=== PATIENT | male | born 1970 | race Caucasian/White ===

== ENCOUNTER 2020-09-28 08:03 | Emergency (ER) | payer OTHER ==
[~2020-09-28] VITALS: Ht 165.1 cm; Wt 106.6 kg
[2020-09-28] MEDS ORDERED: FLAGYL500MG PO (15:51)
[2020-09-28] MEDS ORDERED: PEPCID20 MG PO (15:51)
[2020-09-28] MEDS ORDERED: INTESTINEX680 M1 PO (15:51)
[2020-09-28] MEDS ORDERED: LEVOFLOXACIN750 MG PO (15:51)
[2020-09-28] MEDS ORDERED: KETO10TA2 PO (15:51)
== END 2020-09-28 17:04 | disposition home or self-care (01) ==
LOC: ER 08:03
DX: R10.32 Left lower quadrant pain (principal); Z20.828 Contact with and (suspected) exposure to other viral communicable diseases

== ENCOUNTER 2020-09-28 21:33 | Inpatient (IN) | payer OTHER ==
[~2020-09-28] VITALS: Ht 165.1 cm; Wt 5.0 kg
[~2020-09-28 21:33] MED LIST: FLAGYL500MG PO; INTESTINEX680 M1 PO; KETO10TA2 PO; LEVOFLOXACIN750 MG PO; PEPCID20 MG PO
[2020-10-03] MEDS ORDERED: AMOX-CLAV 875-1 EACH PO (11:46)
[2020-10-03] MEDS ORDERED: PROBIOTIC1 EAC1 PO (11:51)
[2020-10-03] MEDS ORDERED: PEPCID AC20 MG PO (11:52)
== END 2020-10-03 16:12 | disposition home or self-care (01) | DRG 392 ==
LOC: ER 21:33 → MEDJ 09-29 10:54
PROVIDERS: ADMIT Internal Medicine; ATTEND Internal Medicine
PROC: BW24ZZZ Computerized Tomography (CT Scan) of Chest and Abdomen (ICD-10-PCS; principal; 2020-09-29)
DX: K57.32 Diverticulitis of large intestine without perforation or abscess without bleeding (principal); T50.995A Adverse effect of other drugs, medicaments and biological substances, initial encounter; Z20.828 Contact with and (suspected) exposure to other viral communicable diseases

== ENCOUNTER 2021-01-13 09:16 | Day surgery (SDC) | payer OTHER ==
[~2021-01-13 09:16] MED LIST changes: +AMOX-CLAV 875-1 EACH PO; +PEPCID AC20 MG PO; +PROBIOTIC1 EAC1 PO
== END 2021-01-13 16:35 | disposition home or self-care (01) ==
LOC: AMB-ENDOS 09:16
PROVIDERS: ATTEND Surgery
DX: D12.2 Benign neoplasm of ascending colon (principal); Z12.11 Encounter for screening for malignant neoplasm of colon; Z20.822 Contact with and (suspected) exposure to COVID-19

== ENCOUNTER 2021-03-09 08:40 | Emergency (ER) | payer OTHER ==
[~2021-03-09] VITALS: Ht 165.1 cm; Wt 104.3 kg
[2021-03-09] MEDS ORDERED: LOSARTAN-HCTZ1 EACH PO (15:37)
== END 2021-03-09 16:19 | disposition home or self-care (01) ==
LOC: ER 08:40
DX: I16.0 Hypertensive urgency (principal); I10 Essential (primary) hypertension; Z11.52 Encounter for screening for COVID-19

== ENCOUNTER 2022-04-15 17:35 | Emergency (ER) | payer OTHER ==
[~2022-04-15] VITALS: Ht 165.1 cm; Wt 99.8 kg
[~2022-04-15 17:35] MED LIST changes: +LOSARTAN-HCTZ1 EACH PO
== END 2022-04-15 21:29 | disposition home or self-care (01) ==
LOC: ER 17:35
DX: R51.9 Headache, unspecified (principal)

== ENCOUNTER 2023-05-06 23:46 | Emergency (ER) | payer OTHER ==
[~2023-05-06] VITALS: Ht 165.1 cm; Wt 102.1 kg
[2023-05-07] MEDS ORDERED: XANAX XR0.5 MG PO (04:35)
== END 2023-05-07 04:48 | disposition home or self-care (01) ==
LOC: ER 23:46
DX: F41.9 Anxiety disorder, unspecified (principal)

== ENCOUNTER 2023-08-06 11:52 | Inpatient (IN) | payer OTHER ==
[~2023-08-06] VITALS: Ht 165.1 cm; Wt 975.2 kg
[~2023-08-06 11:52] MED LIST changes: +XANAX XR0.5 MG PO
[2023-08-06] MEDS ORDERED: PEPCID AC20 MG (12:47)
[2023-08-06 14:39] LABS: HEMATOCRIT 44.9 % (39.0-48.0); HEMOGLOBIN 15.4 g/dL (13-16.00); MEAN CELL VOLUME 93.8 fL (80.0-100.00); MEAN CORPUSCULAR HEMOGLOBIN 32.2 pg (27.00-32.0); MEAN CORPUSCULAR HGB CONC 34.3 g/dl (32.0-36.0); PLATELET COUNT 265 K/uL (150-450); RED BLOOD COUNT 4.79 M/uL (4.00-6.00); RED CELL DISTRIBUTION WIDTH 13.7 % (11.5-14.5)
[2023-08-06 14:51] LABS: URINE APPEARANCE Cloudy; URINE BILIRRUBIN Small (NEGATIVE); URINE BLOOD Small; URINE COLOR Dark Yellow; URINE GLUCOSE Negative (NEGATIVE); URINE LEUKOCYTE Large; URINE NITRATE Positive; URINE PROTEIN 30 (NEGATIVE)
[2023-08-06 14:55] LABS: URINE RBC 67.5 uL (0.0-20.8)
[2023-08-06 14:59] LABS: URINE EPITHELIAL CELLS 0.6 uL (0.0-38.8)
[2023-08-06 15:17] LABS: ALBUMIN 3.3 gm/dL (3.4-5.0); BILIRUBIN TOTAL 1.86 mg/dL (0.3-1.2); CALCIUM 9.4 mg/dL (8.5-10.1); CREATININE SERUM 0.96 mg/dL (0.70-1.30); GFR 82.25; GLOBULINA 5.2 G/DL (2.4-3.5); POTASSIUM 3.31 mEq/L (3.5-5.1); TOTAL PROTEIN 8.5 gm/dL (6.4-8.2)
[2023-08-06 15:21] LABS: PROSTATIC SPECIFIC ANTIGEN 12.7 NG/ML (0.010-4.00)
[2023-08-07 00:35] LABS: INR 1.18; PARTIAL THROMBOPLASTIN TIME 29.5 SECONDS (22.0-34.0); PROTHROMBIN TIME 12.2 SECONDS (9.0-11.5)
[2023-08-07 16:02] LABS: CALCIUM 8.2 mg/dL (8.5-10.1); CHOL HDL RATIO 2.5 (0-5.0); CREATININE SERUM 0.84 mg/dL (0.70-1.30); GFR 95.95; POTASSIUM 3.42 mEq/L (3.5-5.1)
[2023-08-08 07:28] LABS: ALBUMIN 2.8 gm/dL (3.4-5.0); BILIRUBIN TOTAL 0.94 mg/dL (0.3-1.2); CALCIUM 8.2 mg/dL (8.5-10.1); CREATININE SERUM 0.83 mg/dL (0.70-1.30); GFR 97.29; GLOBULINA 3.7 G/DL (2.4-3.5); MAGNESIUM 1.8 mg/dL (1.8-2.4); PHOSPHOROUS 2.2 mg/dL (2.5-4.9); POTASSIUM 3.68 mEq/L (3.5-5.1); TOTAL PROTEIN 6.5 gm/dL (6.4-8.2)
[2023-08-08 07:30] LABS: C-REACTIVE PROTEIN 15.5 MG/DL (0.00-0.29)
[2023-08-08 08:31] LABS: HEMATOCRIT 39.1 % (39.0-48.0); HEMOGLOBIN 13.5 g/dL (13-16.00); MEAN CELL VOLUME 95.8 fL (80.0-100.00); MEAN CORPUSCULAR HGB CONC 34.4 g/dl (32.0-36.0); PLATELET COUNT 211 K/uL (150-450); RED BLOOD COUNT 4.08 M/uL (4.00-6.00); RED CELL DISTRIBUTION WIDTH 13.5 % (11.5-14.5)
[2023-08-09 12:13] LABS: PH,URINE 6.5 (5.0-8.0); URINE APPEARANCE Clear; URINE BILIRRUBIN Negative (NEGATIVE); URINE BLOOD Negative; URINE COLOR Yellow; URINE GLUCOSE Negative (NEGATIVE); URINE LEUKOCYTE Small; URINE NITRATE Negative; URINE PROTEIN Trace (NEGATIVE)
[2023-08-09 12:14] LABS: URINE BACTERIA 13.8 uL (0.0-1933); URINE EPITHELIAL CELLS 2.9 uL (0.0-38.8); URINE RBC 2.8 uL (0.0-20.8); URINE WBC 83.4 uL (0.0-23.2)
[2023-08-10 05:37] LABS: HEMATOCRIT 36.3 % (39.0-48.0); HEMOGLOBIN 12.8 g/dL (13-16.00); MEAN CELL VOLUME 93.4 fL (80.0-100.00); MEAN CORPUSCULAR HEMOGLOBIN 33.1 pg (27.00-32.0); MEAN CORPUSCULAR HGB CONC 35.4 g/dl (32.0-36.0); PLATELET COUNT 252 K/uL (150-450); RED BLOOD COUNT 3.89 M/uL (4.00-6.00); RED CELL DISTRIBUTION WIDTH 13.4 % (11.5-14.5)
[2023-08-10 06:02] LABS: ALBUMIN 2.5 gm/dL (3.4-5.0); BILIRUBIN TOTAL 0.76 mg/dL (0.3-1.2); CALCIUM 7.9 mg/dL (8.5-10.1); CREATININE SERUM 0.57 mg/dL (0.70-1.30); GFR 150.11; GLOBULINA 3.5 G/DL (2.4-3.5); MAGNESIUM 2.2 mg/dL (1.8-2.4); POTASSIUM 3.32 mEq/L (3.5-5.1)
[2023-08-13 07:24] LABS: HEMATOCRIT 36.5 % (39.0-48.0); MEAN CORPUSCULAR HEMOGLOBIN 32.3 pg (27.00-32.0); MEAN CORPUSCULAR HGB CONC 35.5 g/dl (32.0-36.0); PLATELET COUNT 317 K/uL (150-450); RED BLOOD COUNT 4.02 M/uL (4.00-6.00)
[2023-08-13 07:30] LABS: INR 1.05; PARTIAL THROMBOPLASTIN TIME 29.9 SECONDS (22.0-34.0)
[2023-08-13 07:46] LABS: ALBUMIN 2.8 gm/dL (3.4-5.0); BILIRUBIN TOTAL 0.69 mg/dL (0.3-1.2); BILIRUBIN,CONJUGATED 0.22 mg/dL (0.0-0.2); BILIRUBIN,UNCONJUGATED 0.47 mg/dL (0.0-0.6); CALCIUM 8.6 mg/dL (8.5-10.1); CHOL HDL RATIO 5.2 (0-5.0); CREATININE SERUM 0.63 mg/dL (0.70-1.30); GFR 133.74; GLOBULINA 3.5 G/DL (2.4-3.5); MAGNESIUM 2.1 mg/dL (1.8-2.4); PHOSPHOROUS 2.6 mg/dL (2.5-4.9); POTASSIUM 3.19 mEq/L (3.5-5.1); TOTAL PROTEIN 6.3 gm/dL (6.4-8.2)
[2023-08-13 11:01] LABS: UREA CLEARANCE 39.6 ML/MIN
[2023-08-19 10:57] LABS: HEMATOCRIT 39.8 % (39.0-48.0); HEMOGLOBIN 14.1 g/dL (13-16.00); MEAN CELL VOLUME 91.5 fL (80.0-100.00); MEAN CORPUSCULAR HEMOGLOBIN 32.3 pg (27.00-32.0); MEAN CORPUSCULAR HGB CONC 35.3 g/dl (32.0-36.0); PLATELET COUNT 368 K/uL (150-450); RED BLOOD COUNT 4.35 M/uL (4.00-6.00); RED CELL DISTRIBUTION WIDTH 13.3 % (11.5-14.5)
[2023-08-19 11:06] LABS: BILIRUBIN TOTAL 1.08 mg/dL (0.3-1.2); CALCIUM 9.2 mg/dL (8.5-10.1); CREATININE SERUM 0.71 mg/dL (0.70-1.30); GFR 116.5; GLOBULINA 3.8 G/DL (2.4-3.5); MAGNESIUM 1.9 mg/dL (1.8-2.4); PHOSPHOROUS 3.1 mg/dL (2.5-4.9); POTASSIUM 4.01 mEq/L (3.5-5.1); TOTAL PROTEIN 6.8 gm/dL (6.4-8.2)
[2023-08-20 07:00] LABS: INR 1.09; PARTIAL THROMBOPLASTIN TIME 29.8 SECONDS (22.0-34.0); PROTHROMBIN TIME 11.4 SECONDS (9.0-11.5)
[2023-08-20 07:21] LABS: ALBUMIN 2.9 gm/dL (3.4-5.0); BILIRUBIN TOTAL 1.18 mg/dL (0.3-1.2); BILIRUBIN,CONJUGATED 0.34 mg/dL (0.0-0.2); BILIRUBIN,UNCONJUGATED 0.84 mg/dL (0.0-0.6); CALCIUM 9.3 mg/dL (8.5-10.1); CHOL HDL RATIO 4.9 (0-5.0); CREATININE SERUM 0.68 mg/dL (0.70-1.30); GFR 122.45; GLOBULINA 3.6 G/DL (2.4-3.5); MAGNESIUM 1.8 mg/dL (1.8-2.4); POTASSIUM 3.24 mEq/L (3.5-5.1); TOTAL PROTEIN 6.5 gm/dL (6.4-8.2)
[2023-08-20 07:27] LABS: HEMATOCRIT 38.3 % (39.0-48.0); HEMOGLOBIN 13.3 g/dL (13-16.00); MEAN CELL VOLUME 91.4 fL (80.0-100.00); MEAN CORPUSCULAR HEMOGLOBIN 31.8 pg (27.00-32.0); MEAN CORPUSCULAR HGB CONC 34.7 g/dl (32.0-36.0); PLATELET COUNT 333 K/uL (150-450); RED BLOOD COUNT 4.19 M/uL (4.00-6.00); RED CELL DISTRIBUTION WIDTH 13.5 % (11.5-14.5)
[2023-08-20 11:40] LABS: UREA CLEARANCE 65.1 ML/MIN
[2023-08-24 07:24] LABS: HEMATOCRIT 36.8 % (39.0-48.0); HEMOGLOBIN 12.7 g/dL (13-16.00); MEAN CELL VOLUME 91.8 fL (80.0-100.00); MEAN CORPUSCULAR HEMOGLOBIN 31.7 pg (27.00-32.0); MEAN CORPUSCULAR HGB CONC 34.6 g/dl (32.0-36.0); PLATELET COUNT 239 K/uL (150-450); RED BLOOD COUNT 4.01 M/uL (4.00-6.00); RED CELL DISTRIBUTION WIDTH 13.1 % (11.5-14.5)
[2023-08-24 08:08] LABS: ALBUMIN 2.8 gm/dL (3.4-5.0); BILIRUBIN TOTAL 1.18 mg/dL (0.3-1.2); CALCIUM 9.1 mg/dL (8.5-10.1); CREATININE SERUM 0.78 mg/dL (0.70-1.30); GFR 104.52; GLOBULINA 3.2 G/DL (2.4-3.5); MAGNESIUM 1.8 mg/dL (1.8-2.4); PHOSPHOROUS 4.2 mg/dL (2.5-4.9); POTASSIUM 3.06 mEq/L (3.5-5.1)
[2023-08-24 16:08] LABS: ALBUMIN 3.4 gm/dL (3.4-5.0); BILIRUBIN TOTAL 1.43 mg/dL (0.3-1.2); CALCIUM 9.6 mg/dL (8.5-10.1); CHOL HDL RATIO 4.8 (0-5.0); CREATININE SERUM 0.88 mg/dL (0.70-1.30); GFR 90.94; POTASSIUM 3.47 mEq/L (3.5-5.1); TOTAL PROTEIN 7.4 gm/dL (6.4-8.2)
[2023-08-27 07:41] LABS: ALBUMIN 2.8 gm/dL (3.4-5.0); BILIRUBIN TOTAL 0.75 mg/dL (0.3-1.2); CALCIUM 9.2 mg/dL (8.5-10.1); CREATININE SERUM 0.87 mg/dL (0.70-1.30); GFR 92.15; GLOBULINA 3.4 G/DL (2.4-3.5); HEMATOCRIT 38.8 % (39.0-48.0); HEMOGLOBIN 13.5 g/dL (13-16.00); MAGNESIUM 2.1 mg/dL (1.8-2.4); MEAN CELL VOLUME 90.2 fL (80.0-100.00); MEAN CORPUSCULAR HEMOGLOBIN 31.3 pg (27.00-32.0); MEAN CORPUSCULAR HGB CONC 34.7 g/dl (32.0-36.0); PHOSPHOROUS 4.4 mg/dL (2.5-4.9); PLATELET COUNT 226 K/uL (150-450); POTASSIUM 3.72 mEq/L (3.5-5.1); TOTAL PROTEIN 6.2 gm/dL (6.4-8.2)
[2023-08-27 07:45] LABS: ALBUMIN 2.8 gm/dL (3.4-5.0); BILIRUBIN TOTAL 0.75 mg/dL (0.3-1.2); BILIRUBIN,CONJUGATED 0.23 mg/dL (0.0-0.2); BILIRUBIN,UNCONJUGATED 0.52 mg/dL (0.0-0.6); CHOL HDL RATIO 5.1 (0-5.0); TOTAL PROTEIN 6.2 gm/dL (6.4-8.2)
[2023-08-27 07:50] LABS: INR 1.09; PARTIAL THROMBOPLASTIN TIME 31.2 SECONDS (22.0-34.0); PROTHROMBIN TIME 11.4 SECONDS (9.0-11.5)
[2023-08-27 10:45] LABS: UREA CLEARANCE 52.4 ML/MIN
[2023-08-28 06:55] LABS: HEMATOCRIT 39.5 % (39.0-48.0); HEMOGLOBIN 13.8 g/dL (13-16.00); MEAN CELL VOLUME 90.4 fL (80.0-100.00); MEAN CORPUSCULAR HEMOGLOBIN 31.7 pg (27.00-32.0); MEAN CORPUSCULAR HGB CONC 35.1 g/dl (32.0-36.0); PLATELET COUNT 235 K/uL (150-450); RED BLOOD COUNT 4.37 M/uL (4.00-6.00); RED CELL DISTRIBUTION WIDTH 12.7 % (11.5-14.5)
[2023-08-28 06:55] LABS: ABG PH 7.417 (7.35-7.45); ABG PO2 66.1 mmHg (80-100); BASE EXCESS 3.2 mmol/l; BICARBONATE 28.4 mmol/l (23-25); SaO2 93.3 %
[2023-08-28 06:56] LABS: Tco2 29.7 mmol/l; allen test SATISFACTORY; o2 21 %; puncture site RADIAL RIGHT
[2023-08-28 07:19] LABS: CALCIUM 9.3 mg/dL (8.5-10.1); CREATININE SERUM 0.69 mg/dL (0.70-1.30); GFR 120.41; PHOSPHOROUS 4.3 mg/dL (2.5-4.9); POTASSIUM 3.42 mEq/L (3.5-5.1)
[2023-08-29 07:31] LABS: HEMATOCRIT 38.3 % (39.0-48.0); HEMOGLOBIN 13.4 g/dL (13-16.00); MEAN CELL VOLUME 90.3 fL (80.0-100.00); MEAN CORPUSCULAR HEMOGLOBIN 31.6 pg (27.00-32.0); PLATELET COUNT 216 K/uL (150-450); RED BLOOD COUNT 4.24 M/uL (4.00-6.00); RED CELL DISTRIBUTION WIDTH 12.9 % (11.5-14.5)
[2023-08-29 07:58] LABS: BILIRUBIN TOTAL 0.64 mg/dL (0.3-1.2); CALCIUM 8.7 mg/dL (8.5-10.1); CREATININE SERUM 0.59 mg/dL (0.70-1.30); GFR 144.25; GLOBULINA 3.4 G/DL (2.4-3.5); MAGNESIUM 2.1 mg/dL (1.8-2.4); POTASSIUM 3.76 mEq/L (3.5-5.1); TOTAL PROTEIN 6.4 gm/dL (6.4-8.2)
[2023-08-31 07:32] LABS: HEMATOCRIT 41.1 % (39.0-48.0); HEMOGLOBIN 14.5 g/dL (13-16.00); MEAN CELL VOLUME 90.4 fL (80.0-100.00); MEAN CORPUSCULAR HEMOGLOBIN 31.8 pg (27.00-32.0); MEAN CORPUSCULAR HGB CONC 35.2 g/dl (32.0-36.0); PLATELET COUNT 234 K/uL (150-450); RED BLOOD COUNT 4.55 M/uL (4.00-6.00); RED CELL DISTRIBUTION WIDTH 12.8 % (11.5-14.5)
[2023-08-31 08:02] LABS: INR 1.08; PARTIAL THROMBOPLASTIN TIME 30.5 SECONDS (22.0-34.0); PROTHROMBIN TIME 11.3 SECONDS (9.0-11.5)
[2023-08-31 08:15] LABS: ALBUMIN 3.2 gm/dL (3.4-5.0); BILIRUBIN TOTAL 0.79 mg/dL (0.3-1.2); CALCIUM 9.4 mg/dL (8.5-10.1); CREATININE SERUM 0.79 mg/dL (0.70-1.30); MAGNESIUM 2.3 mg/dL (1.8-2.4); POTASSIUM 3.88 mEq/L (3.5-5.1); TOTAL PROTEIN 7.2 gm/dL (6.4-8.2)
[2023-08-31 08:17] LABS: COL EPI 113 SECONDS (82-175)
[2023-09-03 06:09] LABS: HEMATOCRIT 42.1 % (39.0-48.0); HEMOGLOBIN 14.8 g/dL (13-16.00); MEAN CELL VOLUME 90.9 fL (80.0-100.00); MEAN CORPUSCULAR HEMOGLOBIN 31.9 pg (27.00-32.0); MEAN CORPUSCULAR HGB CONC 35.1 g/dl (32.0-36.0); PLATELET COUNT 229 K/uL (150-450); RED BLOOD COUNT 4.63 M/uL (4.00-6.00); RED CELL DISTRIBUTION WIDTH 12.6 % (11.5-14.5)
[2023-09-03 06:28] LABS: INR 1.08; PARTIAL THROMBOPLASTIN TIME 31.3 SECONDS (22.0-34.0); PROTHROMBIN TIME 11.3 SECONDS (9.0-11.5)
[2023-09-03 06:37] LABS: CHOL HDL RATIO 5.2 (0-5.0)
[2023-09-03 06:49] LABS: ALBUMIN 3.2 gm/dL (3.4-5.0); BILIRUBIN TOTAL 0.89 mg/dL (0.3-1.2); BILIRUBIN,CONJUGATED 0.23 mg/dL (0.0-0.2); BILIRUBIN,UNCONJUGATED 0.66 mg/dL (0.0-0.6); CALCIUM 9.6 mg/dL (8.5-10.1); CREATININE SERUM 0.86 mg/dL (0.70-1.30); GFR 93.38; GLOBULINA 4.1 G/DL (2.4-3.5); POTASSIUM 4.26 mEq/L (3.5-5.1); TOTAL PROTEIN 7.3 gm/dL (6.4-8.2)
[2023-09-03 11:11] LABS: UREA CLEARANCE 47.8 ML/MIN
[2023-09-09 08:37] LABS: HEMATOCRIT 39.1 % (39.0-48.0); HEMOGLOBIN 13.6 g/dL (13-16.00); MEAN CELL VOLUME 89.3 fL (80.0-100.00); MEAN CORPUSCULAR HGB CONC 34.7 g/dl (32.0-36.0); PLATELET COUNT 187 K/uL (150-450); RED BLOOD COUNT 4.38 M/uL (4.00-6.00)
[2023-09-09 09:11] LABS: ALBUMIN 2.8 gm/dL (3.4-5.0); BILIRUBIN TOTAL 0.48 mg/dL (0.3-1.2); CREATININE SERUM 0.73 mg/dL (0.70-1.30); GFR 112.83; GLOBULINA 3.3 G/DL (2.4-3.5); MAGNESIUM 1.9 mg/dL (1.8-2.4); PHOSPHOROUS 3.8 mg/dL (2.5-4.9); POTASSIUM 3.6 mEq/L (3.5-5.1); TOTAL PROTEIN 6.1 gm/dL (6.4-8.2)
[2023-09-10 06:48] LABS: HEMATOCRIT 37.9 % (39.0-48.0); HEMOGLOBIN 13.4 g/dL (13-16.00); MEAN CELL VOLUME 88.6 fL (80.0-100.00); MEAN CORPUSCULAR HEMOGLOBIN 31.3 pg (27.00-32.0); MEAN CORPUSCULAR HGB CONC 35.3 g/dl (32.0-36.0); PLATELET COUNT 184 K/uL (150-450); RED BLOOD COUNT 4.28 M/uL (4.00-6.00); RED CELL DISTRIBUTION WIDTH 13.2 % (11.5-14.5)
[2023-09-10 07:09] LABS: ALBUMIN 2.9 gm/dL (3.4-5.0); BILIRUBIN TOTAL 0.49 mg/dL (0.3-1.2); BILIRUBIN,CONJUGATED 0.15 mg/dL (0.0-0.2); BILIRUBIN,UNCONJUGATED 0.34 mg/dL (0.0-0.6); CALCIUM 9.1 mg/dL (8.5-10.1); CHOL HDL RATIO 4.7 (0-5.0); CREATININE SERUM 0.67 mg/dL (0.70-1.30); GFR 124.56; GLOBULINA 3.2 G/DL (2.4-3.5); MAGNESIUM 1.9 mg/dL (1.8-2.4); POTASSIUM 3.33 mEq/L (3.5-5.1); TOTAL PROTEIN 6.1 gm/dL (6.4-8.2)
[2023-09-10 08:20] LABS: INR 0.98; PARTIAL THROMBOPLASTIN TIME 29.8 SECONDS (22.0-34.0); PROTHROMBIN TIME 10.3 SECONDS (9.0-11.5)
[2023-09-10 10:13] LABS: UREA CLEARANCE 30.7 ML/MIN
[2023-09-11 03:42] LABS: ABG PH 7.361 (7.35-7.45); ABG PO2 385.2 mmHg (80-100); ABG pCO2 44.9 mmHg (35-45); BASE EXCESS -0.9 mmol/l; BICARBONATE 24.8 mmol/l (23-25); SaO2 99.9 %; Tco2 26.2 mmol/l; allen test SATISFACTORY; o2 100 %; puncture site RADIAL LEFT
[2023-09-11 08:36] LABS: HEMATOCRIT 39.6 % (39.0-48.0); MEAN CELL VOLUME 89.2 fL (80.0-100.00); MEAN CORPUSCULAR HEMOGLOBIN 31.5 pg (27.00-32.0); MEAN CORPUSCULAR HGB CONC 35.3 g/dl (32.0-36.0); PLATELET COUNT 210 K/uL (150-450); RED BLOOD COUNT 4.44 M/uL (4.00-6.00); RED CELL DISTRIBUTION WIDTH 13.1 % (11.5-14.5)
[2023-09-11 08:57] LABS: ALBUMIN 2.9 gm/dL (3.4-5.0); CALCIUM 8.8 mg/dL (8.5-10.1); CREATININE SERUM 0.81 mg/dL (0.70-1.30); GFR 100.07; MAGNESIUM 1.7 mg/dL (1.8-2.4); POTASSIUM 3.18 mEq/L (3.5-5.1)
[2023-09-11 09:00] LABS: PHOSPHOROUS 1.8 mg/dL (2.5-4.9)
[2023-09-12 06:58] LABS: ALBUMIN 2.6 gm/dL (3.4-5.0); BILIRUBIN TOTAL 0.92 mg/dL (0.3-1.2); CALCIUM 8.8 mg/dL (8.5-10.1); CREATININE SERUM 0.6 mg/dL (0.70-1.30); GFR 141.48; GLOBULINA 3.5 G/DL (2.4-3.5); HEMATOCRIT 38.8 % (39.0-48.0); HEMOGLOBIN 13.3 g/dL (13-16.00); MAGNESIUM 1.9 mg/dL (1.8-2.4); MEAN CELL VOLUME 89.8 fL (80.0-100.00); MEAN CORPUSCULAR HEMOGLOBIN 30.8 pg (27.00-32.0); MEAN CORPUSCULAR HGB CONC 34.3 g/dl (32.0-36.0); PHOSPHOROUS 3.4 mg/dL (2.5-4.9); PLATELET COUNT 202 K/uL (150-450); POTASSIUM 3.3 mEq/L (3.5-5.1); RED BLOOD COUNT 4.32 M/uL (4.00-6.00); RED CELL DISTRIBUTION WIDTH 13.3 % (11.5-14.5); TOTAL PROTEIN 6.1 gm/dL (6.4-8.2)
[2023-09-13 07:40] LABS: HEMATOCRIT 39.6 % (39.0-48.0); HEMOGLOBIN 13.5 g/dL (13-16.00); MEAN CELL VOLUME 88.9 fL (80.0-100.00); MEAN CORPUSCULAR HEMOGLOBIN 30.3 pg (27.00-32.0); MEAN CORPUSCULAR HGB CONC 34.1 g/dl (32.0-36.0); PLATELET COUNT 241 K/uL (150-450); RED BLOOD COUNT 4.46 M/uL (4.00-6.00); RED CELL DISTRIBUTION WIDTH 13.3 % (11.5-14.5)
[2023-09-13 07:48] LABS: CALCIUM 8.7 mg/dL (8.5-10.1); CREATININE SERUM 0.57 mg/dL (0.70-1.30); GFR 150.11; MAGNESIUM 2.3 mg/dL (1.8-2.4); POTASSIUM 3.44 mEq/L (3.5-5.1)
[2023-09-14 06:56] LABS: HEMATOCRIT 36.8 % (39.0-48.0); MEAN CORPUSCULAR HEMOGLOBIN 30.8 pg (27.00-32.0); MEAN CORPUSCULAR HGB CONC 35.4 g/dl (32.0-36.0); PLATELET COUNT 250 K/uL (150-450); RED BLOOD COUNT 4.23 M/uL (4.00-6.00); RED CELL DISTRIBUTION WIDTH 13.5 % (11.5-14.5)
[2023-09-14 07:04] LABS: ALBUMIN 2.5 gm/dL (3.4-5.0); CALCIUM 8.8 mg/dL (8.5-10.1); CREATININE SERUM 0.64 mg/dL (0.70-1.30); GFR 131.33; GLOBULINA 3.4 G/DL (2.4-3.5); MAGNESIUM 1.9 mg/dL (1.8-2.4); PHOSPHOROUS 2.8 mg/dL (2.5-4.9); POTASSIUM 3.04 mEq/L (3.5-5.1); TOTAL PROTEIN 5.9 gm/dL (6.4-8.2)
[2023-09-15 08:17] LABS: CALCIUM 8.9 mg/dL (8.5-10.1); CREATININE SERUM 0.72 mg/dL (0.70-1.30); GFR 114.64; POTASSIUM 3.44 mEq/L (3.5-5.1)
[2023-09-15 08:43] LABS: HEMATOCRIT 34.6 % (39.0-48.0); MEAN CELL VOLUME 89.4 fL (80.0-100.00); MEAN CORPUSCULAR HEMOGLOBIN 30.9 pg (27.00-32.0); MEAN CORPUSCULAR HGB CONC 34.5 g/dl (32.0-36.0); PLATELET COUNT 259 K/uL (150-450); RED BLOOD COUNT 3.87 M/uL (4.00-6.00); RED CELL DISTRIBUTION WIDTH 13.3 % (11.5-14.5)
[2023-09-18 07:59] LABS: HEMATOCRIT 32.8 % (39.0-48.0); HEMOGLOBIN 11.3 g/dL (13-16.00); MEAN CELL VOLUME 90.3 fL (80.0-100.00); MEAN CORPUSCULAR HEMOGLOBIN 31.2 pg (27.00-32.0); MEAN CORPUSCULAR HGB CONC 34.6 g/dl (32.0-36.0); PLATELET COUNT 267 K/uL (150-450); RED BLOOD COUNT 3.63 M/uL (4.00-6.00); RED CELL DISTRIBUTION WIDTH 13.1 % (11.5-14.5)
[2023-09-18] MEDS ORDERED: INTESTINEX680 M1 PO (08:23)
[2023-09-18] MEDS ORDERED: NEURONTIN300 MG PO (08:23)
[2023-09-18 08:27] LABS: CALCIUM 8.6 mg/dL (8.5-10.1); CREATININE SERUM 0.7 mg/dL (0.70-1.30); GFR 118.42; MAGNESIUM 2.1 mg/dL (1.8-2.4); POTASSIUM 3.39 mEq/L (3.5-5.1)
== END 2023-09-18 13:32 | disposition home or self-care (01) | DRG 330 ==
LOC: ER 11:53 → MEDJ 20:44 → O/R 08-09 15:22 → MEDJ 08-09 15:25 → O/R 09-11 08:44 → ICU 09-11 18:37 → SURH 09-12 15:03
PROVIDERS: General Practice; Internal Medicine; Internal Medicine Infectious Disease; Surgery; ADMIT Internal Medicine; ATTEND Internal Medicine
PROC: BW21ZZZ Computerized Tomography (CT Scan) of Abdomen and Pelvis (ICD-10-PCS; 2023-08-06)
PROC: 02HV33Z Insertion of Infusion Device into Superior Vena Cava, Percutaneous Approach (ICD-10-PCS; 2023-08-09)
PROC: BW21YZZ Computerized Tomography (CT Scan) of Abdomen and Pelvis using Other Contrast (ICD-10-PCS; 2023-08-12)
PROC: 3E0F7GC Introduction of Other Therapeutic Substance into Respiratory Tract, Via Natural or Artificial Opening (ICD-10-PCS; 2023-08-14)
PROC: BW21YZZ Computerized Tomography (CT Scan) of Abdomen and Pelvis using Other Contrast (ICD-10-PCS; 2023-08-20)
PROC: 4A12X4Z Monitoring of Cardiac Electrical Activity, External Approach (ICD-10-PCS; 2023-08-27)
PROC: 0DBP4ZZ Excision of Rectum, Percutaneous Endoscopic Approach (ICD-10-PCS; 2023-09-10)
PROC: 0WUF47Z Supplement Abdominal Wall with Autologous Tissue Substitute, Percutaneous Endoscopic Approach (ICD-10-PCS; 2023-09-10)
PROC: 0JQC0ZZ Repair Pelvic Region Subcutaneous Tissue and Fascia, Open Approach (ICD-10-PCS; 2023-09-10)
PROC: 0T788DZ Dilation of Bilateral Ureters with Intraluminal Device, Via Natural or Artificial Opening Endoscopic (ICD-10-PCS; 2023-09-10)
PROC: 0TN74ZZ Release Left Ureter, Percutaneous Endoscopic Approach (ICD-10-PCS; 2023-09-10)
PROC: 0DJD8ZZ Inspection of Lower Intestinal Tract, Via Natural or Artificial Opening Endoscopic (ICD-10-PCS; 2023-09-10)
PROC: 0DTN4ZZ Resection of Sigmoid Colon, Percutaneous Endoscopic Approach (ICD-10-PCS; principal; 2023-09-10 15:15)
PROC: 0BH18EZ Insertion of Endotracheal Airway into Trachea, Via Natural or Artificial Opening Endoscopic (ICD-10-PCS; 2023-09-12)
PROC: BW2GYZZ Computerized Tomography (CT Scan) of Pelvic Region using Other Contrast (ICD-10-PCS; 2023-09-17)
DX: K57.20 Diverticulitis of large intestine with perforation and abscess without bleeding (principal); N32.2 Vesical fistula, not elsewhere classified; N39.0 Urinary tract infection, site not specified; I10 Essential (primary) hypertension; T88.4XXA Failed or difficult intubation, initial encounter; J39.8 Other specified diseases of upper respiratory tract; R33.8 Other retention of urine; E87.6 Hypokalemia; R39.89 Other symptoms and signs involving the genitourinary system; E88.09 Other disorders of plasma-protein metabolism, not elsewhere classified; B96.20 Unspecified Escherichia coli [E. coli] as the cause of diseases classified elsewhere
CPT/HCPCS: 72191